=== PATIENT | female | born 1965 | race Caucasian/White ===

== ENCOUNTER 2020-11-27 23:47 | Inpatient (IN) | payer SELFPAY ==
[2020-11-28] MEDS ORDERED: Acetaminophen 325 MG TAB PO PRN (00:21)
[2020-11-28] MEDS ORDERED: Acetaminophen 650 MG Suppository PR PRN (00:21)
[2020-11-28] MEDS ORDERED: Ondansetron ODT 4 MG TAB PO PRN (00:21)
[2020-11-28] MEDS ORDERED: Bisacodyl 5 MG TAB PO PRN (00:21)
[2020-11-28] MEDS ORDERED: Senokot S 8.6-50 MG TAB PO PRN (00:21)
[2020-11-28] MEDS ORDERED: HumaLOG 300 UNITS/3 ML VIAL SC PRN ×3 (00:21→21:11)
[2020-11-28] MEDS ORDERED: Dextrose 5% in Water 1,000 ML IV PRN (00:21)
[2020-11-28] MEDS ORDERED: Dextrose 50% Abboject 50 ML SYRINGE SLOW IVP PRN (00:21)
[2020-11-28] MEDS ORDERED: Ondansetron PF 4 MG/2 ML Vial IVP PRN (00:21)
[2020-11-28 01:01] LABS: Hemoglobin A1c Greater than 14.0 % (4.0-6.0)
[2020-11-28] MEDS: Lactated Ringer's 1,000 ML IV SCH ×3 (03:19→16:18)
[2020-11-28 05:03] VITALS: BMI 42.9
[2020-11-28 07:31] LABS: Mean Corpuscular HGB CONC 32.5 g/dL (32.0-36.0); Mean Corpuscular Hemoglobin 29.6 pg (27.0-31.0); Mean Corpuscular Volume 91.1 fL (78.0-98.0); Mean Platelet Volume 7.3 fL (7.4-10.4); Platelet Count 280 thou/uL (130-400); RBC Distribution Width 12.8 % (11.5-14.5); Red Blood Cell (RBC) Count 4.73 mill/uL (4.20-5.40); White Blood Cell (WBC) Count 11.6 thou/uL (4.8-10.8)
[2020-11-28 07:48] LABS: Band 4 % (5-11); Lymphocytes 4 % (21-51); MDiff Complete? YES; Monocytes 2 % (0-10); Neutrophil 90 % (42-75); RBC Morphology Normal
[2020-11-28 07:51] LABS: ALT (SGPT) 141 U/L (8-55); AST (SGOT) 50 U/L (5-34); Albumin 3.3 g/dL (3.5-5.0); Alkaline Phosphatase 101 U/L (40-110); Anion Gap 15 mmol/L (10-20); BUN (Urea Nitrogen) 16 mg/dL (9.8-20.1); Bilirubin, Total 0.7 mg/dL (0.2-1.2); Calc. Creatinine Clearance 115 mL/min (70-130); Carbon Dioxide 23 mmol/L (22-29); Cardiac Risk 5.2 (Less than 4.5); Chloride 99 mmol/L (98-107); Cholesterol 183 mg/dl (< 200 Desired); Globulin 3.2 g/dL (2.4-3.5); HDL Cholesterol 35 mg/dL (>60 Neg Risk); LDL Cholesterol, Calculated 82 mg/dL; Potassium 4.8 mmol/L (3.5-5.1); Protein, Total 6.5 g/dL (6.0-8.3); Sodium 132 mmol/L (136-145); Triglycerides 331 mg/dL (Less than 150)
[2020-11-28 07:56] LABS: Glucose 758 mg/dL (70-105)
[2020-11-28] MEDS ORDERED: HumaLOG 300 UNITS/3 ML VIAL ONE (08:11)
[2020-11-28] MEDS ORDERED: Insulin Regular 300 UNITS/3 ML VIAL ONE (08:42)
[2020-11-28] MEDS ORDERED: Lactated Ringer's 1,000 ML IV SCH ×2 (09:00→16:00)
[2020-11-28] MEDS ORDERED: HumuLIN 70/30 (300 UNITS/3 ML VIAL) SC SCH ×3 (09:00→21:00)
[2020-11-28] MEDS ORDERED: HumaLOG 300 UNITS/3 ML VIAL IVP SCH (09:00)
[2020-11-28] MEDS ORDERED: Enoxaparin Sodium 40 MG/0.4 ML SYRINGE ONE (09:46)
[2020-11-28] MEDS ORDERED: predniSONE 20 MG TAB ONE (09:46)
[2020-11-28] MEDS: metFORMIN 500 MG TAB PO SCH ×2 (09:54→16:16)
[2020-11-28] MEDS: Enoxaparin Sodium 40 MG/0.4 ML SYRINGE SC SCH (09:55)
[2020-11-28] MEDS: Doxycycline 100 MG CAP PO SCH ×2 (09:55→21:44)
[2020-11-28] MEDS: predniSONE 20 MG TAB PO SCH (09:56)
[2020-11-28 10:27] LABS: Bacteria/HPF None Seen HPF (None Seen); Bilirubin Negative (Negative); Blood, Urine Negative (Negative); Clarity Clear (Clear); Glucose, Urine (Dipstick) Greater than 1000 mg/dL (Negative); Ketone, Urine 10 mg/dL (Negative); Leukocyte Negative Leu/uL (Negative); Nitrite Negative (Negative); Protein, Urine (Dipstick) 30 mg/dL (Neg-Trace); RBC/HPF 0-3 HPF (0-3); Specific Gravity, Urine 1.031 (1.002-1.036); Squamous Epithelial 0-3 HPF (0-3); Urobilinogen Normal mg/dL (Less than 2); WBC/HPF 0-3 HPF (0-3)
[2020-11-28] MEDS: HumaLOG 300 UNITS/3 ML VIAL SC PRN ×2 (11:53→16:53)
[2020-11-28] MEDS ORDERED: Insulin Regular 300 UNITS/3 ML VIAL IVP SCH (16:00)
[2020-11-28] MEDS ORDERED: Atorvastatin Calcium 40 MG TAB PO SCH (21:00)
[2020-11-28] MEDS: Atorvastatin Calcium 40 MG TAB PO SCH (21:44)
[2020-11-28] MEDS ORDERED: Insulin Regular 300 UNITS/3 ML VIAL SC PRN (21:45)
[2020-11-29] MEDS: HumaLOG 300 UNITS/3 ML VIAL SC PRN ×3 (06:10→16:01)
[2020-11-29] MEDS: Lactated Ringer's 1,000 ML IV SCH ×4 (06:33→12:15)
[2020-11-29] MEDS: predniSONE 20 MG TAB PO SCH (08:48)
[2020-11-29] MEDS: metFORMIN 500 MG TAB PO SCH ×2 (08:48→17:51)
[2020-11-29] MEDS: Doxycycline 100 MG CAP PO SCH ×2 (08:48→20:34)
[2020-11-29] MEDS: Enoxaparin Sodium 40 MG/0.4 ML SYRINGE SC SCH (08:49)
[2020-11-29] MEDS: HumuLIN 70/30 (300 UNITS/3 ML VIAL) SC SCH ×2 (08:49→20:34)
[2020-11-29] MEDS ORDERED: HumuLIN 70/30 (300 UNITS/3 ML VIAL) SC SCH ×2 (09:00)
[2020-11-29] MEDS ORDERED: Benzonatate 100 MG CAP ONE (12:05)
[2020-11-29] MEDS: Benzonatate 100 MG CAP PO SCH ×2 (12:08→20:32)
[2020-11-29] MEDS: Guaifenesin DM 100-10/5 ML UDCUP PO PRN (17:51)
[2020-11-29] MEDS: Atorvastatin Calcium 40 MG TAB PO SCH (20:32)
[2020-11-30] MEDS: Lactated Ringer's 1,000 ML IV SCH (03:59)
[2020-11-30] MEDS: Guaifenesin DM 100-10/5 ML UDCUP PO PRN (05:24)
[2020-11-30] MEDS: HumaLOG 300 UNITS/3 ML VIAL SC PRN ×3 (06:15→16:10)
[2020-11-30] MEDS: Doxycycline 100 MG CAP PO SCH (08:00)
[2020-11-30] MEDS: metFORMIN 500 MG TAB PO SCH ×2 (08:00→16:08)
[2020-11-30] MEDS: Benzonatate 100 MG CAP PO SCH ×2 (08:00→16:08)
[2020-11-30] MEDS: predniSONE 20 MG TAB PO SCH (08:00)
[2020-11-30] MEDS: Enoxaparin Sodium 40 MG/0.4 ML SYRINGE SC SCH (08:01)
[2020-11-30 08:15] LABS: Anion Gap 12 mmol/L (10-20); BUN (Urea Nitrogen) 12 mg/dL (9.8-20.1); Calc. Creatinine Clearance 176 mL/min (70-130); Calcium 8.9 mg/dL (7.8-10.44); Carbon Dioxide 28 mmol/L (22-29); Chloride 100 mmol/L (98-107); Glucose 232 mg/dL (70-105); Potassium 3.3 mmol/L (3.5-5.1); Sodium 137 mmol/L (136-145)
[2020-11-30] MEDS ORDERED: Lisinopril 10 MG TAB PO SCH (09:00)
[2020-11-30] MEDS ORDERED: HumuLIN 70/30 (300 UNITS/3 ML VIAL) SC SCH (09:00)
[2020-11-30 17:28] VITALS: BP 139/73; TEMP 98.3
== END 2020-11-30 17:39 | disposition home or self-care (01) | DRG 189 ==
LOC: ERS 23:47 → ERHOLD 11-28 00:20 → T4-B 11-28 14:54
PROVIDERS: ADMIT Family Medicine; ATTEND Family Medicine
DX: J96.21 Acute and chronic respiratory failure with hypoxia (principal); J44.1 Chronic obstructive pulmonary disease with (acute) exacerbation; Z68.42 Body mass index [BMI] 45.0-49.9, adult; Z23 Encounter for immunization; Z91.14 Patient's other noncompliance with medication regimen; Z66 Do not resuscitate; E78.5 Hyperlipidemia, unspecified; E11.65 Type 2 diabetes mellitus with hyperglycemia; R19.7 Diarrhea, unspecified; E66.9 Obesity, unspecified; I10 Essential (primary) hypertension; Z87.891 Personal history of nicotine dependence; Z87.01 Personal history of pneumonia (recurrent); Z79.899 Other long term (current) drug therapy
CPT/HCPCS: 36415; 36416; 80048; 80053; 80061; 81003; 82010; 83036; 84145; 85025; 90471; 90732; 94640; 99285; G0009; J1650; J1815; J7512; J7620

== ENCOUNTER 2022-09-07 16:23 | Observation (INO) | payer SELFPAY ==
[2022-09-07] MEDS ORDERED: Dextrose 5% in Water 1,000 ML IV PRN (23:47)
[2022-09-07] MEDS ORDERED: Acetaminophen 325 MG TAB PO PRN (23:47)
[2022-09-07] MEDS ORDERED: HumaLOG 300 UNITS/3 ML VIAL SC PRN (23:47)
[2022-09-07] MEDS ORDERED: Dextrose 50% Abboject 50 ML SYRINGE SLOW IVP PRN (23:47)
[2022-09-08] MEDS ORDERED: Ondansetron ODT 4 MG TAB PO PRN (00:32)
[2022-09-08] MEDS ORDERED: Ondansetron PF 4 MG/2 ML Vial IVP PRN (00:32)
[2022-09-08] MEDS ORDERED: Sodium Chloride 0.9% 1,000 ML IV SCH (00:45)
[2022-09-08] MEDS ORDERED: Ipratropium/Albuterol 3 ML NEB NEB PRN (02:24)
[2022-09-08 03:59] VITALS: BMI 40.6
[2022-09-08] MEDS: Mometasone 200 MCG/Formoterol 5 MCG 120 PUFF INHALER INH SCH ×2 (07:06→18:40)
[2022-09-08 08:21] LABS: #Eosinphils 0.2 thou/uL (0.0-0.7); #Lymphocytes 1.4 thou/uL (1.20-3.40); #Monocytes 0.6 thou/uL (0.11-0.59); #Neutrophils 5.5 thou/uL (1.40-6.50); %Basophils 0.5 % (0.0-1.0); %Eosinophils 2.2 % (0.0-10.0); %Lymphocytes 17.9 % (21.0-51.0); %Monocytes 7.5 % (0.0-10.0); %Neutrophils 71.9 % (42.0-75.0); Hemoglobin 13.8 g/dL (12.0-16.0); Mean Corpuscular HGB CONC 32.4 g/dL (32.0-36.0); Mean Corpuscular Hemoglobin 28.9 pg (27.0-31.0); Mean Corpuscular Volume 89.1 fl (78.0-98.0); Mean Platelet Volume 6.9 fL (7.4-10.4); Platelet Count 365 10x3/uL (130-400); RBC Distribution Width 14.4 % (11.5-14.5); Red Blood Cell (RBC) Count 4.79 mill/uL (4.20-5.40); White Blood Cell (WBC) Count 7.7 10x3/uL (4.8-10.8)
[2022-09-08 08:43] LABS: Anion Gap 14 mmol/L (10-20); BUN (Urea Nitrogen) 11 mg/dL (9.8-20.1); Calc. Creatinine Clearance 126 mL/min (70-130); Calcium 8.8 mg/dL (7.8-10.44); Carbon Dioxide 23 mmol/L (22-29); Chloride 103 mmol/L (98-107); Estimated GFR 90; Glucose 183 mg/dL (70-105); Potassium 3.9 mmol/L (3.5-5.1); Sodium 136 mmol/L (136-145)
[2022-09-08] MEDS ORDERED: PROPOFOL 200 MG/20 ML VIAL ONE (08:57)
[2022-09-08 09:12] LABS: Hemoglobin A1c 8.7 % (4.0-6.0)
[2022-09-08] MEDS: Pantoprazole 40 MG VIAL IVP SCH (19:35)
[2022-09-08] MEDS ORDERED: Atorvastatin Calcium 40 MG TAB PO SCH (21:00)
[2022-09-09] MEDS: HumaLOG 300 UNITS/3 ML VIAL SC PRN ×2 (05:43→11:45)
[2022-09-09 06:56] LABS: #Basophils 0.1 thou/uL (0.0-0.2); #Eosinphils 0.2 thou/uL (0.0-0.7); #Lymphocytes 1.4 thou/uL (1.20-3.40); #Monocytes 0.5 thou/uL (0.11-0.59); #Neutrophils 4.3 thou/uL (1.40-6.50); %Basophils 0.8 % (0.0-1.0); %Eosinophils 2.7 % (0.0-10.0); %Lymphocytes 21.5 % (21.0-51.0); %Monocytes 8.1 % (0.0-10.0); %Neutrophils 66.9 % (42.0-75.0); Hemoglobin 13.7 g/dL (12.0-16.0); Mean Corpuscular HGB CONC 32.6 g/dL (32.0-36.0); Mean Corpuscular Hemoglobin 28.9 pg (27.0-31.0); Mean Corpuscular Volume 88.7 fl (78.0-98.0); Mean Platelet Volume 6.7 fL (7.4-10.4); Platelet Count 346 10x3/uL (130-400); RBC Distribution Width 14.2 % (11.5-14.5); Red Blood Cell (RBC) Count 4.75 mill/uL (4.20-5.40); White Blood Cell (WBC) Count 6.5 10x3/uL (4.8-10.8)
[2022-09-09 07:08] LABS: Anion Gap 12 mmol/L (10-20); BUN (Urea Nitrogen) 11 mg/dL (9.8-20.1); Calc. Creatinine Clearance 124 mL/min (70-130); Calcium 8.9 mg/dL (7.8-10.44); Carbon Dioxide 27 mmol/L (22-29); Chloride 103 mmol/L (98-107); Estimated GFR 88; Glucose 234 mg/dL (70-105); Potassium 4.2 mmol/L (3.5-5.1); Sodium 138 mmol/L (136-145)
[2022-09-09] MEDS: Mometasone 200 MCG/Formoterol 5 MCG 120 PUFF INHALER INH SCH (07:18)
[2022-09-09] MEDS: Pantoprazole 40 MG VIAL IVP SCH (08:41)
[2022-09-09 12:12] VITALS: BP 142/74; TEMP 98.9
== END 2022-09-09 12:14 | disposition home or self-care (01) ==
LOC: T4-B 16:23
PROVIDERS: ADMIT Internal Medicine; ATTEND Internal Medicine
PROC: 0DB48ZX Excision of Esophagogastric Junction, Via Natural or Artificial Opening Endoscopic, Diagnostic (ICD-10-PCS; principal; 2022-09-08)
PROC: 0D748ZZ Dilation of Esophagogastric Junction, Via Natural or Artificial Opening Endoscopic (ICD-10-PCS; 2022-09-08)
DX: K22.2 Esophageal obstruction (principal); K22.11 Ulcer of esophagus with bleeding; K44.9 Diaphragmatic hernia without obstruction or gangrene; E11.40 Type 2 diabetes mellitus with diabetic neuropathy, unspecified; J44.9 Chronic obstructive pulmonary disease, unspecified; I10 Essential (primary) hypertension; E78.5 Hyperlipidemia, unspecified; M19.90 Unspecified osteoarthritis, unspecified site; K21.9 Gastro-esophageal reflux disease without esophagitis; Z87.891 Personal history of nicotine dependence; Z79.1 Long term (current) use of non-steroidal anti-inflammatories (NSAID); Z79.84 Long term (current) use of oral hypoglycemic drugs; Z79.899 Other long term (current) drug therapy; Z91.014 Allergy to mammalian meats; Z20.822 Contact with and (suspected) exposure to COVID-19
CPT/HCPCS: 36415; 36416; 80048; 83036; 85025; 88305; 88312; 88313; 96374; 96376; C9113; G0378; J1815; J2704; J7050; U0003; U0005

== ENCOUNTER 2023-04-23 13:24 | Outpatient (CLI) | payer OTHER | END 2023-04-23 13:25 | disposition home or self-care (01) | LOC: BICRAD 13:24 | PROVIDERS: ATTEND Preventive Medicine Occupational Medicine | DX: J44.9 Chronic obstructive pulmonary disease, unspecified (principal); M19.011 Primary osteoarthritis, right shoulder; M19.012 Primary osteoarthritis, left shoulder; M17.11 Unilateral primary osteoarthritis, right knee; M51.36 Other intervertebral disc degeneration, lumbar region; M47.816 Spondylosis without myelopathy or radiculopathy, lumbar region; M79.89 Other specified soft tissue disorders | CPT/HCPCS: 71046; 72100 ==

== ENCOUNTER 2025-05-10 12:36 | Outpatient (CLI) | payer OTHER | END 2025-05-10 12:37 | disposition home or self-care (01) | LOC: CT 12:36 | PROVIDERS: ATTEND Internal Medicine | DX: J44.9 Chronic obstructive pulmonary disease, unspecified (principal) | CPT/HCPCS: 71250 ==